=== PATIENT | female | born 1995 | race American Indian/Alaskan Native ===

== ENCOUNTER 2018-06-14 14:51 | Outpatient (CLI) | payer BC ==
--- NOTE | 2018-06-14 16:53 | Vascular Lab Report ---
FINAL REPORT EXAM: VL VENOUS DUPLEX LE BILAT HISTORY: SWELLING OF LOWER LEG , history of travel TECHNIQUE: Ultrasound examination of the right lower extremity venous system Ultrasound examination of the left lower extremity venous system PRIORS: None. FINDINGS: Right leg: Normal compressibility, vascular patency, and augmentation are present diffusely throughout the visua lized portion of the deep veins of the right leg. No abnormal intraluminal echoes are visualized to suggest thrombus. Left leg: Normal compressibility, vascular patency, and augmentation are present diffusely throughout the visua lized portion of the deep veins of the left leg. No abnormal intraluminal echoes are visualized to s uggest thrombus. IMPRESSION: No sonographic evidence of DVT in the right leg No sonographic evidence of DVT in the left leg
== END 2018-06-14 14:52 | disposition home or self-care (01) ==
LOC: VAS 14:51
PROVIDERS: ATTEND Preventive Medicine Preventive Medicine/Occupational Environmental Medicine
DX: M79.89 Other specified soft tissue disorders (principal); R42 Dizziness and giddiness
CPT/HCPCS: 93970

== ENCOUNTER 2018-06-15 05:33 | Emergency (ER) | payer BC ==
[2018-06-15 06:29] LABS: Basophils % (Auto) 0.3 % (0.0-1.8); Eosinophils # (Auto) 0.1 K/mm3 (0.0-0.4); Eosinophils % (Auto) 2.3 % (0.0-4.3); Hemoglobin 12.5 gm/dl (10.1-14.3); Lymphocytes # (Auto) 1.9 K/mm3 (1.2-5.4); Lymphocytes % (Auto) 36.3 % (13.4-35.0); Mean Corpuscular HGB Conc 32 % (30-34); Mean Corpuscular Volume 79 fl (79-97); Monocytes # (Auto) 0.4 K/mm3 (0.0-0.8); Monocytes % (Auto) 8.2 % (0.0-7.3); Platelet Count 291 K/mm3 (140-440); Red Blood Count 4.94 M/mm3 (3.65-5.03); Red Cell Distribution Width 15.9 % (13.2-15.2)
--- NOTE | 2018-06-15 06:42 | Emergency Department Report ---
ED General Adult HPI - General Chief complaint: Arrhythmia/Palpitations Stated complaint: CHEST PAIN Time Seen by Provider: 06/15/18 06:36 Source: patient Mode of arrival: Ambulatory Limitations: No Limitations - History of Present Illness Initial comments: This is a 22-year-old female who was on a transatlantic flight on . Since then she's been having brief episodes of dizziness. She has not passed out. She felt like her heart was racing. She was sent to this facility by a primary care physician who considered the possibility of venous thromboembolism. The venous Doppler is already done and negative for both legs. The patient does not report to me chest pain or dyspnea. She is not tachycardic. She is not dizzy at this time. She had no headache and no focal neurological type symptoms. She is now essentially asymptomatic. -: days(s) Consistency: now resolved Improves with: none Worsens with: none Associated Symptoms: denies other symptoms Treatments Prior to Arrival: none - Related Data Allergies Allergy/AdvReac Type Severity Reaction Status Date / Time No Known Allergies Allergy Unverified 06/15/18 06:03 ED Review of Systems ROS: Stated complaint: CHEST PAIN Other details as noted in HPI Constitutional: weakness (episodic less than 1 minute dizziness without syncope. Heart racing. Apple watch shows a heart rate of 90). denies: chills, fever Eyes: denies: eye pain, eye discharge, vision change ENT: denies: ear pain, throat pain Respiratory: denies: cough, shortness of breath, wheezing Cardiovascular: denies: chest pain, palpitations Endocrine: no symptoms reported Gastrointestinal: denies: abdominal pain, nausea, diarrhea Genitourinary: denies: urgency, dysuria, discharge Musculoskeletal: denies: back pain, joint swelling, arthralgia Skin: denies: rash, lesions Neurological: denies: headache, weakness, paresthesias Psychiatric: denies: anxiety, depression Hematological/Lymphatic: denies: easy bleeding, easy bruising ED Past Medical Hx - Past Medical History Previous Medical History?: No - Surgical History Past Surgical History?: No - Social History Smoking Status: Never Smoker Substance Use Type: None ED Physical Exam - General Limitations: No Limitations General appearance: alert, in no apparent distress - Head Head exam: Present: atraumatic, normocephalic - Eye Eye exam: Present: normal appearance. Absent: scleral icterus - ENT ENT exam: Present: mucous membranes moist - Neck Neck exam: Present: normal inspection - Respiratory Respiratory exam: Present: normal lung sounds bilaterally. Absent: respiratory distress - Cardiovascular Cardiovascular Exam: Present: regular rate, normal rhythm. Absent: systolic murmur, diastolic murmur, rubs, gallop - GI/Abdominal GI/Abdominal exam: Present: soft, normal bowel sounds. Absent: distended, tenderness, guarding, rebound, rigid - Extremities Exam Extremities exam: Present: normal inspection - Back Exam Back exam: Present: normal inspection - Neurological Exam Neurological exam: Present: alert, oriented X3, CN II-XII intact. Absent: motor sensory deficit - Psychiatric Psychiatric exam: Present: normal affect, normal mood - Skin Skin exam: Present: warm, dry, intact, normal color. Absent: rash ED Course Vital Signs 06/15/18 06/15/18 06/15/18 05:49 07:14 07:15 Temperature 98 F Pulse Rate 77 79 Respiratory 16 13 12 Rate Blood Pressure 121/77 O2 Sat by Pulse 100 100 Oximetry 06/15/18 06/15/18 06/15/18 07:35 07:45 08:00 Temperature Pulse Rate 84 75 81 Respiratory 22 20 20 Rate Blood Pressure 137/80 137/80 110/66 O2 Sat by Pulse 100 100 Oximetry 06/15/18 08:11 Temperature 97.8 F Pulse Rate Respiratory Rate Blood Pressure O2 Sat by Pulse Oximetry - Reevaluation(s) Reevaluation #1: Should his heart rate is in the 80s now. She is entirely comfortable. She feels ready for discharge. I haven't encouraged her to increase her fluid intake and follow up with her primary care physician. She is appropriate for outpatient management. 06/15/18 08:54 ED Medical Decision Making - Lab Data Result diagrams: 06/15/18 06:09 06/15/18 06:09 Laboratory Results - last 24 hr 06/15/18 06:09 WBC 5.3 RBC 4.94 Hgb 12.5 Hct 39.0 MCV 79 MCH 25 L MCHC 32 RDW 15.9 H Plt Count 291 Lymph % (Auto) 36.3 H [place] % (Auto) 8.2 H Eos % (Auto) 2.3 Baso % (Auto) 0.3 Lymph # 1.9 [place] # 0.4 Eos # 0.1 Baso # 0.0 Seg Neutrophils % 52.9 Seg Neutrophils # 2.8 Laboratory Results - last 24 hr 06/15/18 06/15/18 06/15/18 06:09 06:09 06:09 WBC 5.3 RBC 4.94 Hgb 12.5 Hct 39.0 MCV 79 MCH 25 L MCHC 32 RDW 15.9 H Plt Count 291 Lymph % (Auto) 36.3 H [place] % (Auto) 8.2 H Eos % (Auto) 2.3 Baso % (Auto) 0.3 Lymph # 1.9 [place] # 0.4 Eos # 0.1 Baso # 0.0 Seg Neutrophils % 52.9 Seg Neutrophils # 2.8 PT INR APTT D-Dimer Sodium 138 Potassium 4.2 Chloride 101.6 Carbon Dioxide 23 Anion Gap 18 BUN 12 Creatinine 0.7 Estimated GFR > 60 BUN/Creatinine Ratio 17 Glucose 82 Calcium 9.2 Magnesium Total Bilirubin Direct Bilirubin AST ALT Alkaline Phosphatase Total Protein Albumin Albumin/Globulin Ratio HCG, Qual Negative 06/15/18 06/15/18 06/15/18 06:55 06:55 06:55 WBC RBC Hgb Hct MCV MCH MCHC RDW Plt Count Lymph % (Auto) [place] % (Auto) Eos % (Auto) Baso % (Auto) Lymph # [place] # Eos # Baso # Seg Neutrophils % Seg Neutrophils # PT 13.9 INR 1.03 APTT 30.0 D-Dimer 230.21 Sodium Potassium Chloride Carbon Dioxide Anion Gap BUN Creatinine Estimated GFR BUN/Creatinine Ratio Glucose Calcium Magnesium 2.00 Total Bilirubin 0.20 Direct Bilirubin < 0.2 AST 22 ALT 11 Alkaline Phosphatase 54 Total Protein 6.9 Albumin 4.2 Albumin/Globulin Ratio 1.6 HCG, Qual - EKG Data -: EKG Interpreted by [place] EKG shows normal: sinus rhythm, axis, intervals, QRS complexes, ST-T waves Rate: normal - EKG Data Interpretation: normal EKG Critical care attestation.: If time is entered above; I have spent that time in minutes in the direct care of this critically ill patient, excluding procedure time. ED Disposition Clinical Impression: Weakness with dizziness Disposition: DC-01 TO HOME OR SELFCARE Is pt being admited?: No Does the pt Need Aspirin: No Condition: Stable Instructions: Dizziness (ED) Additional Instructions: Increase fluids. Return to the emergency department any acute change or worsening symptoms. Referrals: MACARENA AYALA MD [Primary Care Provider] - 2-3 Days Time of Disposition: 08:56
[2018-06-15 06:53] LABS: BUN/Creatinine Ratio 17; Blood Urea Nitrogen 12 mg/dL (7-17); Calcium 9.2 mg/dL (8.4-10.2); Hemolysis Index 18
[2018-06-15 07:33] LABS: INR 1.03 (0.87-1.13)
[2018-06-15 07:48] LABS: Alanine Aminotransferase 11 units/L (7-56); Albumin 4.2 g/dL (3.9-5)
[2018-06-15 07:56] LABS: Bilirubin,Direct < 0.2 mg/dL (0-0.2)
[2018-06-15 09:15] LABS: Bilirubin,Urine NEG (Negative); Blood,Urine NEG (Negative); Color,Urine Straw (Yellow); Protein,Urine <15 mg/dL mg/dL (Negative); Urobilinogen,Urine < 2.0 mg/dL (<2.0)
[2018-06-15 09:34] LABS: WBC,Urine < 1.0 /HPF (0.0-6.0)
[2018-06-16 13:30] VITALS: BP 110/66
== END 2018-06-15 09:26 | disposition home or self-care (01) ==
LOC: ED 05:33
DX: R42 Dizziness and giddiness (principal); R53.1 Weakness
CPT/HCPCS: 36415; 80048; 80076; 81001; 83735; 84703; 85025; 85379; 85610; 85730; 93005; 93010; 99283